=== PATIENT | male | born 1970 | race Caucasian/White ===

== ENCOUNTER 2018-09-19 17:55 | Emergency (ER) | payer OTHER | END 2018-09-19 19:46 | disposition home or self-care (01) | LOC: JERFT 17:55 ==

== ENCOUNTER 2019-03-12 20:39 | Emergency (ER) | payer OTHER ==
[2019-03-12 20:42] VITALS: BMI 28.5
[2019-03-12] MEDS ORDERED: ACETAMINOPHEN 500 MG TABLET (FP) PO ONE (21:16)
--- NOTE | 2019-03-12 21:19 | PDOC ---
History of Present Illness - General Chief Complaint: Injury Stated Complaint: TWISTED R ANKLE Time Seen by Provider: 03/12/19 21:08 History Source: Patient Exam Limitations: No Limitations - History of Present Illness Initial Comments: 03/12/19 21:16 HISTORY OF PRESENT ILLNESS: 49-year-old male past medical history of factor V Leiden deficiency on Coumadin who presents to the emergency department for evaluation of right ankle pain status post inversion injury. 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 Patient noted some swelling to his ankle almost immediately and is been unable to bear weight since the injury. No recent travel or sick contacts. PAST MEDICAL HISTORY: See HPI SURGICAL HISTORY: Denies ALLERGIES: No known drug allergies REVIEW OF SYSTEMS General/Constitutional: Denies fever or chills. Denies weakness, weight change. HEENT: Denies change in vision. Denies ear pain or discharge. Denies sore throat. Cardiovascular: Denies chest pain or shortness of breath. Respiratory: Denies cough, wheezing, or hemoptysis. Gastrointestinal: Denies nausea, vomiting, diarrhea or constipation. Denies rectal bleeding. Genitourinary: Denies dysuria, frequency, or change in urination. Musculoskeletal: See HPI Skin and breasts: Denies rash or easy bruising. Neurologic: Denies headache, vertigo, loss of consciousness, or loss of sensation. Psychiatric: Denies depression or anxiety. Endocrine: Denies increased thirst. Denies abnormal weight change. Hematologic/Lymphatic: Denies anemia, easy bleeding, or history of blood clots. Allergic/Immunologic: Denies hives or skin allergy. Denies latex allergy. PHYSICAL EXAM General Appearance: Well-appearing, appropriately dressed. No apparent distress , no intoxication. Respiratory/Chest: Lungs CTAB. No shortness of breath, chest tenderness, respiratory distress, accessory muscle use. No crackles, rales, rhonchi, stridor , wheezing, dullness Cardiovascular: RRR. S1, S2. No JVD, murmur, bradycardia, tachycardia. Vascular Pulses: Dorsalis-Pedis (R): 2+, Dorsalis-Pedis (L): 2+ Musculoskeletal/Extremities: Normal inspection. FROM of all extremities, normal capillary refill. Pelvis Stable. No CVA tenderness. Right ankle tender to palpation over the lateral malleolus. Swelling presents to this area. No deformity appreciated. No crepitus, step-off present. Neurovascularly intact. Past History - Past Medical History Allergies/Adverse Reactions: Allergies Allergy/AdvReac Type Severity Reaction Status Date / Time No Known Allergies Allergy Verified 03/12/19 20:42 Home Medications: Ambulatory Orders Lidocaine 5% Patch [Lidoderm -] 1 patch TP DAILY #30 patch 09/19/18 Methocarbamol [Robaxin -] 500 mg PO BID PRN #14 tablet 09/19/18 Methylprednisolone [Medrol Dose Radu] 4 mg PO ASDIR #21 tablet 09/19/18 Warfarin Sodium [Coumadin] 3 mg PO DAILY 09/19/18 COPD: No Other medical history: FACTOR 5 - Psycho Social/Smoking Cessation Hx Smoking History: Never smoked Have you smoked in the past 12 months: No Hx Alcohol Use: Yes Drug/Substance Use Hx: No Substance Use Type: Alcohol *Physical Exam - Vital Signs Last Vital Signs Temp Pulse Resp BP Pulse Ox 98.2 F 54 L 18 128/66 98 03/12/19 20:40 03/12/19 20:40 03/12/19 20:40 03/12/19 20:40 03/12/19 20:40 ED Treatment Course - RADIOLOGY Radiology Studies Ordered: Category Date Time Status ANKLE & FOOT-RIGHT* [RAD] Stat Radiology 03/12/19 21:16 Ordered Medical Decision Making - Medical Decision Making 03/12/19 21:19 A/P: 49-year-old male with right ankle pain status post inversion injury of the foot Swelling and tenderness present over the lateral malleolus 2+ DP pulses present bilaterally Neurovascularly intact Tylenol 975 mg orally X-ray of the right foot and ankle Likely discharge 03/12/19 21:38 X-rays of the right foot and ankle as read by me: No acute fractures or dislocations are present. Soft tissue swelling present over the lateral malleolus. Ankle mortise is intact. Hyperdensity presents over the distal shaft of the tibia. Domenico wrap [employer] Discharge home I discussed the physical exam findings, ancillary test results and final diagnoses with the patient. I answered all of the patient's questions. The patient was satisfied with the care received and felt comfortable with the discharge plan and treatment plan. The patient will call their primary care physician within 24 hours to arrange follow-up and will return to the Emergency Department with any new, persistent or worsening symptoms. Discharge - Discharge Information Problems reviewed: Yes Clinical Impression/Diagnosis: Injury of right ankle Qualifiers: Encounter type: initial encounter Qualified Code(s): S99.911A - Unspecified injury of right ankle, initial encounter Condition: Stable Disposition: HOME - Admission No - Follow up/Referral Referrals: Israel Chance MD [Staff Physician] - - Patient Discharge Instructions Additional Instructions: Rest. Take Tylenol or Motrin as needed for pain. Follow manufacturers instructions for appropriate dosage. Apply ice for 20 minutes and removed for at least 20 minutes before reapplying the ice. Keep Domenico wrap on your ankle as much as possible to help decrease some of the swelling control pain. Whenever possible keep your foot elevated to decrease swelling to your ankle. You've been given the number for an orthopedist. If symptoms do not resolve within the next 7 days call the orthopedist for further evaluation. Return to emergency department for discoloration of the foot, numbness or tingling to the foot, worsening pain, or any other concerns. Thank you very much for choosing us to provide your emergent healthcare needs. - Post Discharge Activity Work/Back to School Note: Back to Work
[2019-03-12] MEDS ORDERED: ACETAMINOPHEN 325 MG TABLET (FP) ONE (21:48)
[2019-03-12 22:13] VITALS: BP 123/55; PULSE 57; TEMP 97.9
== END 2019-03-13 00:20 | disposition home or self-care (01) ==
LOC: JER 20:39
PROC: 2W3QX1Z Immobilization of Right Lower Leg using Splint (ICD-10-PCS; principal; 2019-03-12)
DX: S99.811A Other specified injuries of right ankle, initial encounter (principal); X50.1XXA Overexertion from prolonged static or awkward postures, initial encounter; V68.4XXA Person boarding or alighting a heavy transport vehicle injured in noncollision transport accident, initial encounter; V86.61XA Passenger of ambulance or fire engine injured in nontraffic accident, initial encounter; Y92.488 Other paved roadways as the place of occurrence of the external cause; Y93.89 Activity, other specified; Y99.0 Civilian activity done for income or pay
CPT/HCPCS: 73610-TC-RT-FY; 73630-TC-RT-FY; 99282-25

== ENCOUNTER 2020-03-21 10:09 | Emergency (ER) | payer BC | END 2020-03-21 10:42 | disposition home or self-care (01) | LOC: JVIRT 10:09 | DX: Z03.818 Encounter for observation for suspected exposure to other biological agents ruled out (principal) | CPT/HCPCS: C9803; G2012-GT; U0003 ==

== ENCOUNTER 2021-01-19 09:36 | Emergency (ER) | payer OTHER, BC ==
[2021-01-19 09:43] VITALS: BP 137/79; PULSE 62; TEMP 97; BMI 28.1
[2021-01-19] MEDS ORDERED: NAPROXEN 500 MG TABLET PO ONE (10:11)
[2021-01-19] MEDS ORDERED: NAPROXEN 500 MG TABLET ONE (10:15)
[2021-01-19] MEDS ORDERED: ACETAMINOPHEN 500 MG TABLET (FP) PO ONE (10:17)
[2021-01-19] MEDS ORDERED: ACETAMINOPHEN 325 MG TABLET (FP) ONE (10:18)
== END 2021-01-19 10:21 | disposition home or self-care (01) ==
LOC: JER 09:36
DX: S83.91XA Sprain of unspecified site of right knee, initial encounter (principal); X50.9XXA Other and unspecified overexertion or strenuous movements or postures, initial encounter
CPT/HCPCS: 73562-TC-RT-FY; 99283-25

== ENCOUNTER 2021-03-28 06:39 | Day surgery (SDC) | payer OTHER, BC ==
[2021-03-26 16:54] VITALS: BMI 27.2
[2021-03-28] MEDS ORDERED: BUPIVACAINE HCL/PF 2.5 MG/ML - 30 ML VIAL IJ ONE (07:39)
[2021-03-28 08:13] LABS: INR 1.15 (0.82-1.09); PROTHROMBIN TIME (PATIENT) 12.8 SEC (10.2-13.0)
[2021-03-28] MEDS ORDERED: MIDAZOLAM HCL 2 MG/2 ML SINGLE DOSE VIAL ONE (08:47)
[2021-03-28] MEDS ORDERED: PROPOFOL 20 ML ONE ×2 (08:47→08:55)
[2021-03-28] MEDS ORDERED: DEXAMETHASONE SOD PHOSPHATE 4 MG/1 ML VIAL ONE (08:59)
[2021-03-28] MEDS ORDERED: ONDANSETRON 4 MG/2 ML VIAL ONE ×2 (08:59→09:47)
[2021-03-28] MEDS ORDERED: ceFAZolin SODIUM 1 GM VIAL ONE (09:01)
[2021-03-28] MEDS ORDERED: BUPIVACAINE HCL/PF 0.25% (2.5MG/ML) 10 ML VIAL IJ ONE (09:20)
[2021-03-28] MEDS ORDERED: KETOROLAC TROMETHAMINE 30 MG/1 ML VIAL ONE (09:22)
[2021-03-28] MEDS ORDERED: oxyCODONE HCL 5 MG TABLET PO PRN (09:35)
[2021-03-28] MEDS ORDERED: ONDANSETRON 4 MG/2 ML VIAL IVPUSH PRN (09:35)
[2021-03-28] MEDS ORDERED: LACTATED RINGERS SOLUTION 1,000 ML IV SCH (09:45)
[2021-03-28 11:29] VITALS: BP 121/61; PULSE 64; TEMP 98
== END 2021-03-28 11:15 | disposition home or self-care (01) ==
LOC: FASU 06:39
PROVIDERS: ATTEND Orthopaedic Surgery
PROC: 0SBC4ZZ Excision of Right Knee Joint, Percutaneous Endoscopic Approach (ICD-10-PCS; principal; 2021-03-28 09:09)
DX: S83.241A Other tear of medial meniscus, current injury, right knee, initial encounter (principal); X58.XXXA Exposure to other specified factors, initial encounter; Y93.9 Activity, unspecified; Y92.9 Unspecified place or not applicable
CPT/HCPCS: 36415; 85610; 88304-TC; 94760